=== PATIENT | female | born 1990 | race African-American/Black ===

== ENCOUNTER 2020-11-24 19:02 | Emergency (ER) | payer MEDICAID ==
[~2020-11-24] VITALS: Ht 154.9 cm; Wt 75.7 kg
[2020-11-24] MEDS ORDERED: ONDANSETRON PF 4 MG/2 ML VIAL. IVP ONE (19:30)
[2020-11-24] MEDS ORDERED: IV NORMAL SALINE 1,000ML 1,000 ML IV ONE ×2 (19:30→22:15)
[2020-11-24 20:15] LABS: BASO % 0 % (0-3); EOS # 0.1 x10^3/uL (0.0-0.7); EOS % 1 % (0-3); HEMATOCRIT 34.3 % (36.0-47.0); HEMOGLOBIN 11.4 g/dL (12.0-15.5); LYMPH % 19 % (24-48); MEAN CORPUSCULAR HEMOGLOBIN 30 pg (25-35); MEAN CORPUSCULAR HGB CONC 33 g/dL (31-37); MEAN CORPUSCULAR VOLUME 91 fL (79-100); MONO # 0.6 x10^3/uL (0.0-1.1); MONO % 6 % (0-9); NEUT # 7.7 x10^3uL (1.8-7.7); NEUT % 75 % (31-73); PLATELET COUNT 290 x10^3/uL (140-400); RED BLOOD COUNT 3.77 x10^6/uL (3.50-5.40); WHITE BLOOD COUNT 10.3 x10^3/uL (4.0-11.0)
[2020-11-24 20:24] LABS: CALCIUM 9.1 mg/dL (8.5-10.1); CREATININE 0.7 mg/dL (0.6-1.0); GFR 118.1; POTASSIUM 3.3 mmol/L (3.5-5.1)
[2020-11-24 20:26] LABS: ALBUMIN 3.3 g/dL (3.4-5.0); ALBUMIN/GLOBULIN RATIO 0.8 (1.0-1.7); TOTAL BILIRUBIN 0.1 mg/dL (0.2-1.0); TOTAL PROTEIN 7.5 g/dL (6.4-8.2)
[2020-11-24] MEDS ORDERED: POTASSIUM CHLORIDE 20 MEQ TABLET.ER. PO ONE ×2 (20:30→20:36)
[2020-11-24 21:24] LABS: BILIRUBIN,URINE NEG (NEG); CLARITY,URINE CLEAR; COLOR,URINE YELLOW; GLUCOSE,URINE NEG (NEG); NITRITE,URINE NEG (NEG); UROBILINOGEN,URINE 0.2 mg/dL (0.2 mg/dL)
[2020-11-24 21:26] LABS: BACTERIA,URINE 0 /HPF (0-FEW); RBC,URINE 0 /HPF (0-2); SQUAMOUS EPITHELIAL CELL,UR MOD /LPF; WBC,URINE 0 /HPF (0-4)
--- NOTE | 2020-11-24 22:04 | PHYS DOC ---
Past History Past Medical History: No Pertinent History (TORSTEN AGUILERA APRN) Past Surgical History: No Surgical History (TORSTEN AGUILERA APRN) Alcohol Use: Sober Social History Narrative: none since becoming (TORSTEN AGUILERA APRN) Adult General Chief Complaint Chief Complaint: VOMITING IN HPI HPI Patient is a 30-year-old female who presents to the emergency department with a chief complaint of with nausea and vomiting for the past 3 days. Patient reports her last menstrual cycle was August 24 with normal duration of flow. Patient states that she had a positive test in September of this year. Patient states she has been one other time and had 1 normal life . Patient states she has been vomiting most of the day, denies abdominal pain or diarrhea, patient denies vaginal discharge, denies STI concerns, denies vaginal bleeding, denies burning with urination increased frequency or decreased urination. Patient states she does not have an ELECTRONIC MAINTENANCE SUPERVISOR in the area because [place]. Patient denies any other physical complaints or physical concerns. (TORSTEN AGUILERA APRN) Review of Systems Review of Systems 14 body systems of review of systems have been reviewed. See HPI for pertinent positives and negative responses, otherwise all other systems are negative, nonpertinent or noncontributory. (TORSTEN AGUILERA APRN) Current Medications Current Medications Current Medications Medications (Trade) Dose Ordered Sig/Silvio Start Time Stop Time Status Last Admin Dose Admin Ondansetron HCl (Zofran) 4 mg 1X ONCE 11/24/20 19:30 11/24/20 20:04 DC 11/24/20 19:27 4 MG Potassium Chloride (Klor-Con) 20 meq STK-MED ONCE 11/24/20 20:36 11/24/20 20:36 DC Sodium Chloride 1,000 ml @ 1,000 mls/hr 1X ONCE 11/24/20 19:30 11/24/20 20:29 DC 11/24/20 19:26 1,000 MLS/HR (TORSTEN AGUILERA APRN) Allergies Allergies Allergies Coded Allergies Type Severity Reaction Last Updated Verified azithromycin Allergy Intermediate Hives 11/24/20 Yes (TORSTEN AGUILERA APRN) Physical Exam Physical Exam Constitutional: Well developed, well nourished, no acute distress, non-toxic appearance. 30-year-old female no apparent distress. HENT: Normocephalic, atraumatic, bilateral external ears normal, oropharynx moist, no oral exudates, nose normal. Eyes: PERRLA, EOMI, conjunctiva normal, no discharge. Neck: Normal range of motion, no tenderness, supple, no stridor. Cardiovascular:Heart rate regular rhythm, no murmur Lungs & Thorax: Bilateral breath sounds clear to auscultation Abdomen: Bowel sounds normal, soft, no tenderness, no masses, no pulsatile masses. Skin: Warm, dry, no erythema, no rash. Back: No tenderness, no CVA tenderness. Extremities: No tenderness, no cyanosis, no clubbing, ROM intact, no edema. Neurologic: Alert and oriented X 3, normal motor function, normal sensory function, no focal deficits noted. Psychologic: Affect normal, judgement normal, mood normal. (TORSTEN AGUILERA APRN) Current Patient Data Vital Signs Vital Signs Date Time Temp Pulse Resp B/P (MAP) Pulse Ox O2 Delivery O2 Flow Rate FiO2 11/24/20 19:17 109 135/75 (95) 11/24/20 19:15 98.1 20 98 Room Air Lab Results Laboratory Tests Test 11/24/20 19:35 11/24/20 20:59 11/24/20 21:14 White Blood Count 10.3 x10^3/uL (4.0-11.0) Red Blood Count 3.77 x10^6/uL (3.50-5.40) Hemoglobin 11.4 g/dL (12.0-15.5) L Hematocrit 34.3 % (36.0-47.0) L Mean Corpuscular Volume 91 fL (79-100) Mean Corpuscular Hemoglobin 30 pg (25-35) Mean Corpuscular Hemoglobin Concent 33 g/dL (31-37) Red Cell Distribution Width 13.0 % (11.5-14.5) Platelet Count 290 x10^3/uL (140-400) Neutrophils (%) (Auto) 75 % (31-73) H Lymphocytes (%) (Auto) 19 % (24-48) L Monocytes (%) (Auto) 6 % (0-9) Eosinophils (%) (Auto) 1 % (0-3) Basophils (%) (Auto) 0 % (0-3) Neutrophils # (Auto) 7.7 x10^3uL (1.8-7.7) Lymphocytes # (Auto) 2.0 x10^3/uL (1.0-4.8) Monocytes # (Auto) 0.6 x10^3/uL (0.0-1.1) Eosinophils # (Auto) 0.1 x10^3/uL (0.0-0.7) Basophils # (Auto) 0.0 x10^3/uL (0.0-0.2) Maternal Serum HCG Beta Subunit 59802 mIU/mL (0-6) H Sodium Level 139 mmol/L (136-145) Potassium Level 3.3 mmol/L (3.5-5.1) L Chloride Level 103 mmol/L (98-107) Carbon Dioxide Level 23 mmol/L (21-32) Anion Gap 13 (6-14) Blood Urea Nitrogen 9 mg/dL (7-20) Creatinine 0.7 mg/dL (0.6-1.0) Estimated GFR (Cockcroft-Gault) 118.1 BUN/Creatinine Ratio 13 (6-20) Glucose Level 129 mg/dL (70-99) H Calcium Level 9.1 mg/dL (8.5-10.1) Total Bilirubin 0.1 mg/dL (0.2-1.0) L Aspartate Amino Transferase (AST) 10 U/L (15-37) L Alanine Aminotransferase (ALT) 19 U/L (14-59) Alkaline Phosphatase 61 U/L (46-116) Total Protein 7.5 g/dL (6.4-8.2) Albumin 3.3 g/dL (3.4-5.0) L Albumin/Globulin Ratio 0.8 (1.0-1.7) L Urine Collection Type Unknown Urine Color Yellow Urine Clarity Clear Urine pH 6.5 Urine Specific [place] 1.015 Urine Protein Neg (NEG-TRACE) Urine Glucose (UA) Neg mg/dL (NEG) Urine Ketones (Stick) Neg mg/dL (NEG) Urine Blood Trace (NEG) Urine Nitrite Neg (NEG) Urine Bilirubin Neg (NEG) Urine Urobilinogen Dipstick 0.2 mg/dL (0.2 mg/dL) Urine Leukocyte Esterase Neg (NEG) Urine RBC 0 /HPF (0-2) Urine WBC 0 /HPF (0-4) Urine Squamous Epithelial Cells Mod /LPF Urine Bacteria 0 /HPF (0-FEW) POC Urine HCG, Qualitative hcg positive (Negative) (TORSTEN AGUILERA APRN) EKG EKG [] (TORSTEN AGUILERA APRN) Radiology/Procedures Radiology/Procedures [] (TORSTEN AGUILERA APRN) Heart Score C/O Chest Pain: No Risk Factors: Risk Factors: DM, Current or recent (<one month) smoker, HTN, HLP, family history of CAD, obesity. Risk Scores: Risk Factors: DM, Current or recent (<one month) smoker, HTN, HLP, family history of CAD, obesity. (TORSTEN AGUILERA APRN) Course & Med Decision Making Course & Med Decision Making Pertinent Labs and Imaging studies reviewed. (See chart for details) 30-year-old female, vital signs reviewed, presents emergency department chief complaint of with nausea vomiting times past 4 days. Patient is a G2, P1 with LMP of August 24. Patient denies vaginal bleeding, abdominal pain or cramping. Will order UA, urine test, beta hCG quantitative level, IV saline lock, 1 L normal saline, 4 mg Zofran. After period of time, patient has not provided a urine sample, will order additional liter of normal saline. Patient's serum potassium 3.5, will order 40 mEq p.o. potassium. Upon reevaluation of patient, patient states she feels much better and is no longer nauseated, awaiting urine results. The patient's urine is not infected, the patient's beta hCG level is 46,746, this places her between 5 and 13 weeks gestation, per patient's reported last menstrual cycle, patient is approximately 13 weeks 1 day. heart tones were ordered, unable to obtain heart tones with bedside Doppler, most likely related to early as patient has no abdominal pain, denies vaginal bleeding or leaking from vaginal area. Discussed findings with patient, strict follow-up with ELECTRONIC MAINTENANCE SUPERVISOR this week, will give prescription for Zofran ODT, started on vitamin, patient gave verbal understanding of discharge home instructions, return to ER precautions and concerns, patient was discharged home without incident. (TORSTEN AGUILERA APRN) Dragon Disclaimer Dragon Disclaimer This electronic medical record was generated, in whole or in part, using a voice recognition dictation system. (TORSTEN AGUILERA APRN) Departure Departure: Impression: Primary Impression: Hyperemesis gravidarum Disposition: HOME / SELF CARE / HOMELESS Condition: GOOD Referrals: PCP,NO (PCP) Additional Instructions: You were seen today in the emergency department for nausea and vomiting while being . Your lab work was unremarkable and did not show any signs of infection or other concerns, your urine was not infected. You have a beta hCG level of 46,746. Please follow-up with an ELECTRONIC MAINTENANCE SUPERVISOR for evaluation of your . Please return immediately to the emergency department for vaginal bleeding increased abdominal pain, or other concerns. I am giving you a prescription for Zofran tablets for nausea, and starting you on a vitamin, please take as directed. I have provided you with a suggestion of an ELECTRONIC MAINTENANCE SUPERVISOR, you may see any ELECTRONIC MAINTENANCE SUPERVISOR of your choice. Dr. Flores ELECTRONIC MAINTENANCE SUPERVISOR Address: [address] [place] [address] [id number], [place] [address] EMERGENCY DEPARTMENT GENERAL DISCHARGE INSTRUCTIONS Thank you for coming to [facility] ([facility]) today and trusting us with you care. We trust that you had a positivie experience in our Emergency Department. If you wish to speak to the department management, you may call the director at [phone]. YOUR FOLLOW UP INSTRUCTIONS ARE FOLLOWS: 1. Do you have a private Doctor? If you do not have a private doctor, please ask for a resource list of physicians or clinics that may be able to assist you with follow up care. 2. The Emergency Physician has interpreted your x-rays. The X-Ray specialist will also review them. If there is a change in the findings, you will be notified in 48 hours when at all possible. 3. A lab test or culture has been done, your results will be reviewed and you will be notified if you need a change in treatment. ADDITIONAL INSTRUCTIONS AND INFORMATION: 1. Your care today has been supervised by a physician who is specially trained in emergency care. Many problems require more than one evaluation for a complete diagnosis and treatment. We recommend that you schedule your follow up appointment as recommended to ensure complete treatment of you illness or injury. If you are unable to obtain follow up care and continue to have a problem, or if your condition worsens, we recommend that you return to the ED. 2. We are not able to safely determine your condition over the phone nor are we able to give sound medical advice over the phone. For these safety reasons, if you call for medical advice we will ask you to come to the ED for further evaluation. 3. If you have any questions regarding these discharge instructions please call the ED at [phone]. SAFETY INFORMATION: In the interest of safety, wellness, and injury prevention; we encourage you to wear your sealbelt, if you smoke; quite smoking, and we encourage family to use a protective helmet for bicycling and other sporting events that present an increased risk for head injury. IF YOUR SYMPTOMS WORSEN OR NEW SYMPTOMS DEVELOP, OR YOU HAVE CONCERNS ABOUT YOUR CONDITION; OR IF YOUR CONDITION WORSENS WHILE YOU ARE WAITING FOR YOUR FOLLOW UP APPOINTMENT; EITHER CONTACT YOUR PRIMARY CARE DOCTOR, THE PHYSICIAN WHOSE NAME AND NUMBER YOU WERE GIVEN, OR RETURN TO THE ED IMMEDIATELY. Scripts [facility] Cmb#95/Ferrous Fumarate/Fa ( TABLET) 1 Each Tablet 1 TAB PO DAILY for for 30 Days, #30 TAB 0 Refills Prov: TORSTEN AGUILERA APRN 11/24/20 Ondansetron (ONDANSETRON ODT) 4 Mg Tab.rapdis 1 TAB PO PRN Q6-8HRS for nausea, #16 TAB Prov: TORSTEN AGUILERA APRN 11/24/20 Attending Signature Attending Signature I have reviewed the PA/MATTING PRESS TENDER's note and plan of care. I was available for consultation as needed during the patient's visit in the emergency department. I agree with the clinical impression, plan, and disposition. (TORSTEN NAJERA DO) TORSTEN AGUILERA APRN Nov 24, 2020 22:04 TORSTEN NAJERA DO Nov 24, 2020 23:32
[2020-11-24 22:15] VITALS: BP 126/62
[2020-11-24] MEDS ORDERED: PNV1TABL25 PO (22:17)
[2020-11-24] MEDS ORDERED: ONDA4TAB12 PO (22:17)
== END 2020-11-24 22:25 | disposition home or self-care (01) ==
LOC: ER 19:02
DX: O21.0 Mild hyperemesis gravidarum (principal); Z3A.13 13 weeks gestation of pregnancy; Z88.1 Allergy status to other antibiotic agents
CPT/HCPCS: 36415; 80053; 81001; 81025; 84702; 85025; 96361; 96374; 99283; J2405; J7030